=== PATIENT | female | born 1995 | race Caucasian/White ===

== ENCOUNTER → 2017-11-27 | Outpatient (REF) | payer BC ==
[2017-11-27 15:09] LABS: CHLAMYDIA DNA AMPLIFICATION NEGATIVE (NEGATIVE); GC DNA AMPLIFICATION NEGATIVE (NEGATIVE)
== END ==
LOC: M SFHCWAGY 11:40
DX: Z12.4 Encounter for screening for malignant neoplasm of cervix (principal); Z11.3 Encounter for screening for infections with a predominantly sexual mode of transmission

== ENCOUNTER → 2020-06-04 | Outpatient (CLI) | payer SELFPAY ==
[~2020-06-04] MED LIST: NO REPORTED MEDS; NSAIDS PO
== END ==
LOC: M LABSMTC 09:49
PROVIDERS: ATTEND Pediatrics
DX: Z20.822 Contact with and (suspected) exposure to COVID-19 (principal)

== ENCOUNTER → 2020-12-01 | Outpatient (REF) | payer BC ==
[2020-12-01 15:41] LABS: GC DNA AMPLIFICATION NEGATIVE (NEGATIVE)
== END ==
LOC: M SFHCWAGY 13:09
PROVIDERS: ATTEND Nurse Practitioner Women's Health
DX: Z12.4 Encounter for screening for malignant neoplasm of cervix (principal); Z11.3 Encounter for screening for infections with a predominantly sexual mode of transmission

== ENCOUNTER → 2021-12-12 | Outpatient (REF) | payer BC ==
[2021-12-12 18:03] LABS: GC DNA AMPLIFICATION NEGATIVE (NEGATIVE)
== END ==
LOC: M SFHCWAGY 13:14
PROVIDERS: ATTEND Obstetrics & Gynecology
DX: Z11.3 Encounter for screening for infections with a predominantly sexual mode of transmission (principal); Z12.4 Encounter for screening for malignant neoplasm of cervix

== ENCOUNTER → 2024-02-27 | Outpatient (REF) | payer OTHER | LOC: M SFHCWAGY 13:25 | PROVIDERS: ATTEND Obstetrics & Gynecology | DX: Z12.4 Encounter for screening for malignant neoplasm of cervix (principal) ==

== ENCOUNTER → 2025-02-04 | Outpatient (CLI) | payer OTHER ==
[2025-02-04 13:30] LABS: PLATELET COUNT, AUTOMATED 246 10^3/uL (150-450)
[2025-02-04 14:03] LABS: HIV 1&2 SCREEN NEGATIVE (NEGATIVE)
[2025-02-04 14:11] LABS: HEPATITIS C VIRUS ABY INDEX < 0.02 INDEX (<0.8)
[2025-02-04 14:40] LABS: Trichomonas vaginalis (AMP) NOT DETECTED (NEGATIVE)
[2025-02-04 15:04] LABS: GC DNA AMPLIFICATION NEGATIVE (NEGATIVE)
== END ==
LOC: M PLALAB 09:32
PROVIDERS: ATTEND Specialist
DX: Z34.81 Encounter for supervision of other normal pregnancy, first trimester (principal)

== ENCOUNTER → 2025-04-01 | Outpatient (CLI) | payer OTHER ==
[2025-04-01 13:33] LABS: PLATELET COUNT, AUTOMATED 206 10^3/uL (150-450)
[2025-04-01 14:15] LABS: HIV 1&2 SCREEN NEGATIVE (NEGATIVE)
[2025-04-01 14:22] LABS: HEPATITIS C VIRUS ABY INDEX < 0.02 INDEX (<0.8)
[2025-04-01 15:45] LABS: Trichomonas vaginalis (AMP) NOT DETECTED (NEGATIVE)
[2025-04-01 16:09] LABS: GC DNA AMPLIFICATION NEGATIVE (NEGATIVE)
== END ==
LOC: M PLALAB 08:56
PROVIDERS: ATTEND Student in an Organized Health Care Education/Training Program
DX: Z34.80 Encounter for supervision of other normal pregnancy, unspecified trimester (principal)

== ENCOUNTER → 2025-04-01 | Outpatient (CLI) | payer OTHER | LOC: M WHC 14:11 | PROVIDERS: ATTEND Obstetrics & Gynecology | DX: Z34.02 Encounter for supervision of normal first pregnancy, second trimester (principal) ==

== ENCOUNTER → 2025-05-20 | Outpatient (CLI) | payer OTHER ==
[2025-05-20 13:28] LABS: GLUCOSE CHALLENGE TEST 1 HOUR 82 MG/DL (LESS THAN 140)
[2025-05-20 13:29] LABS: PLATELET COUNT, AUTOMATED 214 10^3/uL (150-450)
[2025-05-20 14:05] LABS: HIV 1&2 SCREEN NEGATIVE (NEGATIVE)
[2025-05-20 14:13] LABS: HEPATITIS C VIRUS ABY INDEX 0.04 INDEX (<0.8)
[2025-05-20 15:41] LABS: Trichomonas vaginalis (AMP) NOT DETECTED (NEGATIVE)
[2025-05-20 16:05] LABS: GC DNA AMPLIFICATION NEGATIVE (NEGATIVE)
== END ==
LOC: M PLALAB 08:58
PROVIDERS: ATTEND Nurse Practitioner Family
DX: Z34.02 Encounter for supervision of normal first pregnancy, second trimester (principal)